=== PATIENT | female | born 1955 | race Caucasian/White ===

== ENCOUNTER 2024-03-02 13:42 | Outpatient (CLI) | payer MEDICARE, SELFPAY ==
--- NOTE | ~2024-03-02 | US_ITS ---
EXAMINATION: US soft tissue UE RT DATE: 03/02/2024 14:55 INDICATION: Right forearm mass. TECHNIQUE: Multiple grayscale and Doppler ultrasound images of the right forearm were obtained. COMPARISON: None FINDINGS: In the ulnar side of the distal forearm and wrist, there are 2 cystic areas around a tendon . The larger measures 1.5 x 4.0 x 1.4 cm. These findings are consistent with tenosynovitis. IMPRESSION: 1. Severe tenosynovitis in the ulnar side of the distal forearm and wrist. Reviewed, dictated and finalized at location A.
== END 2024-03-02 13:43 ==
LOC: GOSHIMG 13:42
PROVIDERS: PCP Plastic Surgery; Visit Provider Plastic Surgery
DX: G56.01 Carpal tunnel syndrome, right upper limb (principal); R22.31 Localized swelling, mass and lump, right upper limb; M65.831 Other synovitis and tenosynovitis, right forearm
CPT/HCPCS: 76882

== ENCOUNTER 2024-03-24 13:24 | Outpatient (CLI) | payer MEDICARE, SELFPAY ==
--- NOTE | 2024-03-24 14:10 | NEURO_ITS ---
Impression: # Complains of right hand numbness. # Right moderate Carpal Tunnel Syndrome. # No ulnar neuropathy. # Normal needle/EMG exam. Nerve Conduction Studies Anti Sensory Summary Table Stim Site NR Peak (ms) P-T Amp (?V) Site1 Site2 Delta-P (ms) Dist (cm) Rupert (m/s) Right Median Anti Sensory (2-3nd Digit) Wrist 6.8 5.0 Wrist 2-3nd Digit 6.8 14.0 21 Wrist 6.8 10.8 Wrist 2-3nd Digit 6.8 14.0 21 Right Radial Anti Sensory (Base 1st Digit) Wrist 2.7 15.1 Wrist Base 1st Digit 2.7 0.0 Right Ulnar Anti Sensory (5th Digit) Wrist 3.0 33.3 Wrist 5th Digit 3.0 14.0 47 Motor Summary Table Stim Site NR Onset (ms) O-P Amp (mV) Site1 Site2 Delta-0 (ms) Dist (cm) Rupert (m/s) Right Median Motor (Abd Poll Brev) Wrist 4.5 5.1 Elbow Wrist 4.4 26.0 59 Elbow 8.9 2.0 Right Ulnar Motor (Abd Dig Minimi) Wrist 3.0 6.3 A Elbow Wrist 4.3 26.0 60 A Elbow 7.3 3.2 F Wave Studies NR F-Lat (ms) L-R F-Lat (ms) Right Median (Mrkrs) (Abd Poll Brev) 29.61 Right Ulnar (Mrkrs) (Abd Dig Min) 28.67 EMG Side Muscle Nerve Root Ins Act Fibs Amp Dur Recrt Comment Right 1stDorInt Ulnar C8-T1 Nml Nml Nml Nml Nml Right Ext Indicis Radial (Post Int) C7-8 Nml Nml Nml Nml Nml Right Ext Digitorum Radial (Post Int) C7-8 Nml Nml Nml Nml Nml Right BrachioRad Radial C5-6 Nml Nml Nml Nml Nml Right PronatorTeres Median C6-7 Nml Nml Nml Nml Nml Right Abd Poll Brev Median C8-T1 Nml Nml Nml Nml Nml Right ABD Dig Min Ulnar C8-T1 Nml Nml Nml Nml Nml MTDD
== END 2024-03-24 13:25 | disposition home or self-care (01) ==
LOC: ANHNEURO 13:26
PROVIDERS: PCP Plastic Surgery; Visit Provider Plastic Surgery
DX: G56.01 Carpal tunnel syndrome, right upper limb (principal)
CPT/HCPCS: 95886; 95909

== ENCOUNTER 2024-07-13 12:32 | Outpatient (CLI) | payer MEDICARE, SELFPAY ==
[2024-07-13 13:34] LABS: Anion Gap 10 mmol/L (4-12); Blood Urea Nitrogen 18 mg/dL (7-17); Calcium 9.9 mg/dL (8.4-10.2); Carbon Dioxide 26 mmol/L (22-30); Chloride 103 mmol/L (98-107); Estimated Glomerular Filt Rate > 60; Glucose 105 mg/dL (65-110); Potassium 4.4 mmol/L (3.4-5.0); Sodium 139 mmol/L (137-145)
== END 2024-07-13 12:33 | disposition home or self-care (01) ==
PROVIDERS: Anesthesiology; Visit Provider Plastic Surgery
DX: Z51.81 Encounter for therapeutic drug level monitoring (principal)
CPT/HCPCS: 36415; 80048